=== PATIENT | female | born 1995 | race African-American/Black ===

== ENCOUNTER 2017-03-04 00:36 | Emergency (ER) | payer OTHER ==
[2017-03-04] MEDS ORDERED: LIDOCAINE VISCOUS 2% 15 ML UDC MM STA (01:14)
[2017-03-04] MEDS ORDERED: PHENobarb/HYOSCY/ATROPINE/SCOP 5 ML SYRINGE PO STA (01:14)
[2017-03-04] MEDS ORDERED: MAG HYDROX/AL HYDROX/SIMETH 30 ML UDC PO STA (01:14)
--- NOTE | 2017-03-04 01:15 | ED Physician Documentation ---
PD HPI CHEST PAIN - Stated complaint Stated Complaint: CHEST PAIN - Chief complaint Chief Complaint: Cardiac - History obtained from History obtained from: Patient - History of Present Illness Timing - onset: How many hours ago (6) Timing - onset during: Rest Timing - details: Still present Quality: Dull Location: Substernal Worsened by: Inspiration Associated symptoms: Shortness of air, Palpitations Similar symptoms before: Diagnosis (Reports history of similar symptoms with a panic attack 2 months ago.) - Additional information Additional information: The patient is a 21-year-old female who presents with substernal chest discomfort and palpitations that started about 6 hours prior to arrival after eating. She noticed her heart beating rapidly and felt associated shortness of breath. She states it is similar to an episode of panic attack she had 2 months ago. She reports having a recent upper respiratory infection, but her cough has subsided over the past week. She denies nausea, vomiting, or diaphoresis. She does admit to drinking alcohol last night. She denies the use of other drugs. Review of Systems Constitutional: denies: Fever, Fatigue, Sweats Ears: denies: Tinnitus/ringing Nose: denies: Congestion Throat: denies: Sore throat Cardiac: reports: Chest pain / pressure, Palpitations Respiratory: reports: Dyspnea. denies: Cough GI: denies: Abdominal Pain, Nausea, Vomiting : reports: LMP (3 weeks ago). denies: Dysuria Skin: denies: Rash Musculoskeletal: denies: Back pain, Extremity swelling Neurologic: denies: Focal weakness, Numbness, Headache PD PAST MEDICAL HISTORY - Past Medical History Cardiovascular: None Respiratory: None Neuro: None Endocrine/Autoimmune: None GI: None - Past Surgical History Past Surgical History: No - Allergies Allergies/Adverse Reactions: Allergies Allergy/AdvReac Type Severity Reaction Status Date / Time No Known Drug Allergies Allergy Verified 03/04/17 00:50 - Social History Does the pt smoke?: No Smoking Status: Never smoker Does the pt drink ETOH?: Yes Does the pt have substance abuse?: No - Immunizations Immunizations are current?: Yes PD ED PE NORMAL - Vitals Vital signs reviewed: Yes (borderline hypertension initially) - General General: Alert and oriented X 3, Well developed/nourished - HEENT HEENT: Atraumatic, EOMI, Pharynx benign - Neck Neck: No adenopathy, Thyroid normal, No JVD - Cardiac Cardiac: RRR, No murmur, Other (No chest wall tenderness to palpation.) - Respiratory Respiratory: No respiratory distress, Clear bilaterally - Abdomen Abdomen: Soft, No organomegaly, Other (Mild epigastric tenderness to palpation, without rebound or guarding.) - Back Back: No CVA TTP - Derm Derm: No rash - Extremities Extremities: No edema, No calf tenderness / cord - Neuro Neuro: Alert and oriented X 3, No motor deficit, No sensory deficit Results - Vitals Vitals: Vital Signs - 24 hr 03/04/17 03/04/17 00:47 01:53 Temperature 36.7 C Heart Rate 102 H 90 Respiratory 16 20 Rate Blood Pressure 138/90 H 130/80 O2 Saturation 100 100 Oxygen O2 Source Room air - EKG (time done) 01:33 Rate: Rate (enter#) (80) Rhythm: NSR [place]: Normal Intervals: Normal NC QRS: Normal Ischemia: Normal ST segments Computer interpretation: Agree with computer PD MEDICAL DECISION MAKING - ED course Complexity details: reviewed results, re-evaluated patient, considered differential, d/w patient, d/w family ED course: The patient's presentation is most consistent with gastroesophageal reflux. Her electrocardiogram reveals no acute ischemic abnormalities. Treatment in the emergency department included administration of GI cocktail, which resulted in complete resolution of her symptoms. I discussed with her and her the likely etiology of her symptoms, symptomatic treatment and outpatient follow -up, as well as potentially worrisome signs or symptoms that should prompt reevaluation in the emergency department. Departure - Departure Disposition: 01 Home, Self Care Clinical Impression: Chest pain Qualifiers: Chest pain type: precordial pain Qualified Code(s): R07.2 - Precordial pain Gastroesophageal reflux disease Qualifiers: Esophagitis presence: esophagitis presence not specified Qualified Code(s): K21.9 - Gastro-esophageal reflux disease without esophagitis Condition: Stable Instructions: ED GERD Follow-Up: NIHARIKA Feng [Provider Group] Comments: 1. Minimize coffee, silva, and alcohol. 2. If you develop recurrent symptoms try drinking liquid antiacid, such as Maalox or Mylanta. 3. Follow up with your primary physician within one to 2 weeks. Call to schedule an appointment. 4. Return to the emergency department if you develop increasing chest pain, shortness of breath, persistent vomiting, or otherwise worsening symptoms. Discharge Date/Time: 03/04/17 01:53
[2017-03-04] MEDS ORDERED: PHENobarb/HYOSCY/ATROPINE/SCOP 5 ML SYRINGE PO ONE (01:25)
[2017-03-04] MEDS ORDERED: LIDOCAINE VISCOUS 2% 15 ML UDC MM ONE (01:25)
[2017-03-04] MEDS ORDERED: MAG HYDROX/AL HYDROX/SIMETH 30 ML UDC ONE (01:25)
[2017-03-04 01:54] VITALS: BP 130/80
== END 2017-03-04 01:53 | disposition home or self-care (01) ==
LOC: ED 00:36
DX: R07.2 Precordial pain (principal); K21.9 Gastro-esophageal reflux disease without esophagitis
CPT/HCPCS: 93005; 99283; 99284; A9270

== ENCOUNTER 2017-03-08 18:30 | Emergency (ER) | payer OTHER ==
[2017-03-08] MEDS ORDERED: SODIUM CHLORIDE 0.9% 1,000 ML IV ONE (19:37)
[2017-03-08] MEDS ORDERED: SUMAtriptan 6 MG/0.5 ML VIAL SUBQ STA (19:37)
--- NOTE | 2017-03-08 19:38 | ED Physician Documentation ---
History of Present Illness - Stated complaint Stated Complaint: HEADACHE - Chief complaint Chief Complaint: Neuro - History obtained from History obtained from: Patient, Family - History of Present Illness Timing: How many days ago (3) Pain level max: 7 Pain level now: 6 Improved by: Tylenol PM Worsened by: Light, noise, movement - Additonal information Additional information: Patient is a 21-year-old female who presents to the emergency department complaining of a headache for the past 3 days. This is similar to her normal migraine headache. It is located on the right side, aching, throbbing. Gradual onset. Took Tylenol PM 2 days ago which did help, has not taken anything since. No fevers. No trauma. Also complains of esophageal reflux for which she was seen here a few days ago. Patient recently started on Prilosec. Review of Systems Ten Systems: 10 systems reviewed and negative Constitutional: denies: Fever, Chills Eyes: reports: Photophobia Ears: denies: Ear pain Nose: denies: Rhinorrhea / runny nose, Congestion, Epistaxis, Sinus pressure / pain Throat: denies: Sore throat Cardiac: denies: Chest pain / pressure Respiratory: denies: Dyspnea, Cough GI: reports: Abdominal Pain (epigastric). denies: Nausea, Vomiting, Diarrhea : denies: Now EGA Skin: denies: Rash Musculoskeletal: denies: Neck pain, Back pain Neurologic: reports: Generalized weakness. denies: Seizure, Confused, Altered mental status, Head injury, LOC PD PAST MEDICAL HISTORY - Past Medical History Cardiovascular: None Respiratory: None Neuro: None Endocrine/Autoimmune: None GI: None Psych: Anxiety - Past Surgical History Past Surgical History: No - Present Medications Home Medications: Ambulatory Orders Medication Instructions Recorded Confirmed Famotidine [Pepcid] 20 mg PO BID #30 tablet 03/08/17 - Allergies Allergies/Adverse Reactions: Allergies Allergy/AdvReac Type Severity Reaction Status Date / Time No Known Drug Allergies Allergy Verified 03/04/17 00:50 - Social History Does the pt smoke?: No Smoking Status: Never smoker Does the pt drink ETOH?: Yes Does the pt have substance abuse?: No - Immunizations Immunizations are current?: Yes - POLST Patient has POLST: No PD ED PE NORMAL - Vitals Vital signs reviewed: Yes - General General: Alert and oriented X 3, No acute distress, Well developed/nourished - HEENT HEENT: PERRL, EOMI, Ears normal, Moist mucous membranes, Pharynx benign - Neck Neck: Supple, no meningeal sign - Cardiac Cardiac: RRR, Strong equal pulses - Respiratory Respiratory: No respiratory distress, Clear bilaterally - Abdomen Abdomen: Soft, Non tender, Non distended - Back Back: No spinal TTP - Derm Derm: Warm and dry - Neuro Neuro: Alert and oriented X 3, reimbursement specialist 2-12 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 # 0.5 Eos # 0.1 Baso # 0.0 Absolute Nucleated RBC 0.00 Nucleated RBCs 0.1 Sodium 138 Potassium 3.7 Chloride 105 Carbon Dioxide 24 Anion Gap 9.0 BUN 10 Creatinine 0.8 Estimated GFR (MDRD) 108 Glucose 91 Calcium 9.1 Total Bilirubin 0.5 AST 27 ALT 32 Alkaline Phosphatase 55 Total Protein 8.4 H Albumin 4.1 Globulin 4.3 H Albumin/Globulin Ratio 1.0 Lipase 29 Urine Color YELLOW Urine Clarity CLEAR Urine pH 7.5 Ur Specific [place] <=1.005 Urine Protein NEGATIVE Urine Glucose (UA) NEGATIVE Urine Ketones NEGATIVE Urine Occult Blood LARGE H Urine Nitrite NEGATIVE Urine Bilirubin NEGATIVE Urine Urobilinogen 0.2 (NORMAL) Ur Leukocyte Esterase NEGATIVE Urine RBC 0-5 Urine WBC 0-3 Ur Squamous Epith Cells MOD Squamous H Urine Bacteria None Seen Ur Microscopic Review INDICATED Urine Culture Comments NOT INDICATED Urine HCG, Qual NEGATIVE PD MEDICAL DECISION MAKING - ED course Complexity details: reviewed results, re-evaluated patient, considered differential, d/w patient, d/w family ED course: Patient is a 21-year-old female who presents to the emergency department with her usual migraine headache. Headache resolved with Toradol, Compazine, Benadryl and Imitrex. Also given IV fluids. Tolerating p.o. without difficulty. She is well-appearing, nontoxic. Normal neurological examination including cerebellar testing. Normal gait. Will place her on Pepcid as well as the Prilosec for home for her GERD. Patient counseled regarding signs and symptoms for which I believe and urgent re-evaluation would be necessary. Patient with good understanding of and agreement to plan and is comfortable going home at this time This document was made in part using voice recognition software. While efforts are made to proofread this document, sound alike and grammatical errors may occur. Departure - Departure Disposition: Home, Self Care Clinical Impression: Gastroesophageal reflux disease Qualifiers: Esophagitis presence: esophagitis presence not specified Qualified Code(s): K21.9 - Gastro-esophageal reflux disease without esophagitis Migraine Qualifiers: Migraine type: unspecified Status migrainosus presence: without status migrainosus Intractability: not intractable Qualified Code(s): G43.909 - Migraine, unspecified, not intractable, without status migrainosus Condition: Good Instructions: ED Headache Migraine, ED GERD Follow-Up: your,doctor in 1 week [Other] Prescriptions: Famotidine [Pepcid] 20 mg PO BID #30 tablet Comments: Return if you worsen. Rest tonight. Discharge Date/Time: 03/08/17 22:35
[2017-03-08] MEDS ORDERED: SUMAtriptan 6 MG/0.5 ML VIAL SUBQ ONE (19:47)
[2017-03-08 20:37] LABS: BASOPHILS % (AUTO) 0.5 %; EOSINOPHILS # (AUTO) 0.1 10^3/uL (0.0-0.7); EOSINOPHILS % (AUTO) 0.9 %; HCT - HEMATOCRIT 42.4 % (37.0-47.0); LYMPHOCYTES # (AUTO) 2.5 10^3/uL (1.5-3.5); LYMPHOCYTES % (AUTO) 39.3 %; MEAN CORPUSCULAR HGB CONC 33.1 g/dL (32.0-36.0); MEAN CORPUSCULAR VOLUME 87.4 fL (81.0-99.0); MEAN PLATELET VOLUME 8.6 fL (7.9-10.8); MONOCYTES # (AUTO) 0.5 10^3/uL (0.0-1.0); MONOCYTES % (AUTO) 7.4 %; NEUTROPHILS # (AUTO) 3.2 10^3/uL (1.5-6.6); NEUTROPHILS % (AUTO) 51.9 %; NUCLEATED RED BLOOD CELLS AUTO 0.1 /100WBC; RED BLOOD COUNT 4.85 10^6/uL (4.20-5.40); RED CELL DISTRIBUTION WIDTH 13.4 % (12.0-15.0); UNCORRECTED WHITE BLOOD COUNT 6.2 x10^3/uL; WHITE BLOOD COUNT 6.2 x10^3/uL (4.8-10.8)
[2017-03-08 20:47] LABS: BILIRUBIN,TOTAL 0.5 mg/dL (0.2-1.0); CALCIUM 9.1 mg/dL (8.5-10.3); CREATININE 0.8 mg/dL (0.4-1.0); POTASSIUM 3.7 mmol/L (3.5-5.0); TOTAL PROTEIN 8.4 g/dL (6.7-8.2)
[2017-03-08] MEDS ORDERED: diphenhydrAMINE INJ 50 MG/ML VIAL IVP STA (20:54)
[2017-03-08] MEDS ORDERED: KETOROLAC 60 MG/2 ML VIAL IVP STA (20:54)
[2017-03-08] MEDS ORDERED: PROCHLORPERAZINE 10 MG/2 ML VIAL IVP STA (20:54)
[2017-03-08] MEDS ORDERED: diphenhydrAMINE INJ 50 MG/ML VIAL ONE (20:57)
[2017-03-08] MEDS ORDERED: KETOROLAC 30 MG/ML VIAL ONE (20:57)
[2017-03-08] MEDS ORDERED: PROCHLORPERAZINE 10 MG/2 ML VIAL ONE (20:58)
[2017-03-08] MEDS ORDERED: KETOROLAC 30 MG/ML VIAL IVP STA (21:02)
[2017-03-08 21:05] LABS: BILIRUBIN,URINE NEGATIVE (NEGATIVE); PH,URINE 7.5 PH (5.0-7.5)
[2017-03-08 21:08] LABS: HCG UR QUAL NEGATIVE; UA w/ MICROSCOPIC CHARGE YES
[2017-03-08 21:20] LABS: UR CULTURE IF IND NOT INDICATED; WBC,URINE 0-3 /HPF (0-5)
[2017-03-08 22:06] VITALS: BP 116/74
== END 2017-03-08 22:35 | disposition home or self-care (01) ==
LOC: ED 18:30
DX: G43.909 Migraine, unspecified, not intractable, without status migrainosus (principal); K21.9 Gastro-esophageal reflux disease without esophagitis
CPT/HCPCS: 36415; 80053; 81001; 81003; 81025; 83690; 85025; 87086; 96372; 96374; 96375; 99283; 99284

== ENCOUNTER 2017-03-09 15:08 | Emergency (ER) | payer OTHER ==
[2017-03-09 15:15] VITALS: BP 128/84
[2017-03-09] MEDS ORDERED: SUCRALFATE 1 GM/10 ML UDC PO STA (15:25)
--- NOTE | 2017-03-09 15:27 | ED Physician Documentation ---
History of Present Illness - Stated complaint Stated Complaint: MEDS SIDE EFFECTS - Chief complaint Chief Complaint: General - History obtained from History obtained from: Patient, Family - History of Present Illness Timing: Today Pain level max: 3 Pain level now: 3 Improved by: nothing Worsened by: nothing - Additonal information Additional information: Patient is a 21-year-old female who was seen here last night for headache and gastroesophageal reflux. She took Pepcid this morning and approximately 30 minutes later felt tingling in her hands and feet. She states that this is now improving. She also states that she had mild jaw pain earlier this morning which is also resolved. No shortness of breath, no dyspnea, no rash, no hives. Review of Systems Constitutional: denies: Fever, Chills Nose: denies: Rhinorrhea / runny nose, Congestion Throat: denies: Sore throat Respiratory: denies: Cough, Wheezing GI: denies: Vomiting, Diarrhea Skin: denies: Rash Musculoskeletal: denies: Neck pain, Back pain Neurologic: denies: Headache PD PAST MEDICAL HISTORY - Past Medical History Cardiovascular: None Respiratory: None Neuro: None Endocrine/Autoimmune: None GI: None Psych: Anxiety - Past Surgical History Past Surgical History: No - Present Medications Home Medications: Ambulatory Orders Medication Instructions Recorded Confirmed Famotidine [Pepcid] 20 mg PO BID #30 tablet 03/08/17 03/09/17 Desogestrel-Ethinyl Estradiol 1 tab PO DAILY 03/09/17 03/09/17 [[place] 28 Day Tablet] Omeprazole [PriLOSEC] 20 mg PO DAILY 03/09/17 03/09/17 Sucralfate [Carafate] 1 gm PO ACHS #60 tablet 03/09/17 - Allergies Allergies/Adverse Reactions: Allergies Allergy/AdvReac Type Severity Reaction Status Date / Time No Known Drug Allergies Allergy Verified 03/04/17 00:50 - Social History Does the pt smoke?: No Smoking Status: Never smoker Does the pt drink ETOH?: Yes Does the pt have substance abuse?: No - Immunizations Immunizations are current?: Yes - POLST Patient has POLST: No PD ED PE NORMAL - Vitals Vital signs reviewed: Yes - General General: Alert and oriented X 3, No acute distress - HEENT HEENT: Moist mucous membranes, Pharynx benign - Neck Neck: Supple, no meningeal sign - Cardiac Cardiac: RRR - Respiratory Respiratory: No respiratory distress, Clear bilaterally - Abdomen Abdomen: Soft, Non tender, Non distended - Derm Derm: Warm and dry, No rash - Neuro Neuro: Alert and oriented X 3, 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 We will have her stop this at home. We will trial her on Carafate instead. She was seen here for a migraine headache last night and her headache has resolved and has not recurred. The triage note refers to a headache that she describes as jaw pain which is now resolved. No evidence of anaphylaxis. Patient counseled regarding signs and symptoms for which I believe and urgent re-evaluation would be necessary. Patient with good understanding of and agreement to plan and is comfortable going home at this time This document was made in part using voice recognition software. While efforts are made to proofread this document, sound alike and grammatical errors may occur. Departure - Departure Disposition: 01 Home, Self Care Clinical Impression: Medication side effect Gastroesophageal reflux disease Qualifiers: Esophagitis presence: esophagitis presence not specified Qualified Code(s): K21.9 - Gastro-esophageal reflux disease without esophagitis Condition: Good Instructions: ED GERD Follow-Up: your,doctor in 1 week [Other] Prescriptions: Sucralfate [Carafate] 1 gm PO ACHS #60 tablet Comments: Stop the famotidine. Return if you worsen. Discharge Date/Time: 03/09/17 15:35
[2017-03-09] MEDS ORDERED: SUCRALFATE 1 GM/10 ML UDC ONE (15:28)
== END 2017-03-09 15:35 | disposition home or self-care (01) ==
LOC: ED 15:08
DX: R20.2 Paresthesia of skin (principal); T47.0X5A Adverse effect of histamine H2-receptor blockers, initial encounter; Y92.019 Unspecified place in single-family (private) house as the place of occurrence of the external cause; K21.9 Gastro-esophageal reflux disease without esophagitis
CPT/HCPCS: 99283; A9270

== ENCOUNTER 2017-05-16 10:17 | Emergency (ER) | payer OTHER ==
--- NOTE | 2017-05-16 10:52 | ED Physician Documentation ---
PD HPI CHEST PAIN - Stated complaint Stated Complaint: CHEST PX/LIGHTHEADED - Chief complaint Chief Complaint: Cardiac - History obtained from History obtained from: Patient - History of Present Illness Timing - onset: Today Timing - onset during: Rest Timing - duration: Hours Timing - details: Abrupt onset, Still present Quality: Pressure, Sharp Location: Left chest Radiation: Neck Improved by: Nothing Worsened by: Inspiration Associated symptoms: Shortness of air, Nausea, Feeling faint / dizzy. No: Vomiting Similar symptoms before: Diagnosis (reflux) Recently seen: Clinic - Additional information Additional information: 22-year-old female has had pains in her chest for the past 2 and half months. She has been diagnosed with reflux and is placed on some medication for that that helped with heartburn symptoms but she continues to have some pain in her right chest that occurs after she eats and she is complaining of a lot of burping gas and heartburn. She does have pain in her chest that has not been relieved by any of these measures and she is here today because of pain that is in the left chest now. Review of Systems Constitutional: denies: Fever Eyes: denies: Decreased vision Ears: denies: Ear pain Nose: denies: Congestion Throat: denies: Sore throat Cardiac: reports: Chest pain / pressure, Palpitations Respiratory: reports: Dyspnea. denies: Cough GI: reports: Nausea. denies: Abdominal Pain, Vomiting : denies: Dysuria, Frequency PD PAST MEDICAL HISTORY - Past Medical History Past Medical History: Yes Cardiovascular: None Respiratory: None Neuro: None Endocrine/Autoimmune: None GI: GERD Psych: Anxiety - Past Surgical History Past Surgical History: No - Present Medications Home Medications: Ambulatory Orders Medication Instructions Recorded Confirmed Famotidine [Pepcid] 20 mg PO BID #30 tablet 03/08/17 03/09/17 Desogestrel-Ethinyl Estradiol 1 tab PO DAILY 03/09/17 03/09/17 [[place] 28 Day Tablet] Omeprazole [PriLOSEC] 20 mg PO DAILY 03/09/17 03/09/17 Sucralfate [Carafate] 1 gm PO ACHS #60 tablet 03/09/17 - Allergies Allergies/Adverse Reactions: Allergies Allergy/AdvReac Type Severity Reaction Status Date / Time No Known Drug Allergies Allergy Verified 05/16/17 10:23 - Social History Does the pt smoke?: No Smoking Status: Never smoker Does the pt drink ETOH?: Yes Does the pt have substance abuse?: No - Immunizations Immunizations are current?: Yes - POLST Patient has POLST: No PD ED PE NORMAL - Vitals Vital signs reviewed: Yes (hypertensive ) - General General: No acute distress, Well developed/nourished - HEENT HEENT: Atraumatic, PERRL, EOMI - Neck Neck: Supple, no meningeal sign - Cardiac Cardiac: RRR, No murmur - Respiratory Respiratory: No respiratory distress, Clear bilaterally - Abdomen Abdomen: Soft, Non tender - Back Back: No CVA TTP, No spinal TTP - Derm Derm: Normal color, Warm and dry, No rash - Extremities Extremities: No deformity, No edema - Neuro Neuro: No motor deficit, No sensory deficit - Psych Psych: Normal mood, Normal affect Results - Vitals Vitals: Vital Signs - 24 hr 05/16/17 05/16/17 05/16/17 10:20 11:51 12:48 Temperature 36 C L 36.1 C L 36.7 C Heart Rate 92 65 78 Respiratory 18 15 16 Rate Blood Pressure 119/84 H 120/79 125/76 O2 Saturation 100 100 100 Oxygen O2 Source Room air - EKG (time done) 1046 Rate: Rate (enter#) (85) Rhythm: NSR Ischemia: Normal ST segments Compare to prior EKG: Unchanged from prior EKG (03-04-17) Computer interpretation: Agree with computer - Labs Labs: Laboratory Tests 05/16/17 05/16/17 05/16/17 11:45 12:05 12:05 WBC 4.5 L RBC 4.28 Hgb 12.5 Hct 36.9 L MCV 86.4 MCH 29.3 MCHC 33.9 RDW 13.5 Plt Count 238 MPV 9.9 Neut # 2.4 Lymph # 1.8 [place] # 0.3 Eos # 0.0 Baso # 0.0 Absolute Nucleated RBC 0.00 Nucleated RBC % 0.0 Sodium 138 Potassium 3.6 Chloride 106 Carbon Dioxide 22 Anion Gap 10.0 BUN 8 Creatinine 0.8 Estimated GFR (MDRD) 107 Glucose 89 Calcium 9.5 Total Bilirubin 0.7 AST 32 ALT 47 Alkaline Phosphatase 61 Troponin I Total Protein 7.8 Albumin 3.9 Globulin 3.9 Albumin/Globulin Ratio 1.0 Lipase 32 Urine Color LIGHT YELLOW Urine Clarity CLEAR Urine pH 6.0 Ur Specific [place] <=1.005 Urine Protein NEGATIVE Urine Glucose (UA) NEGATIVE Urine Ketones NEGATIVE Urine Occult Blood NEGATIVE Urine Nitrite NEGATIVE Urine Bilirubin NEGATIVE Urine Urobilinogen 0.2 (NORMAL) Ur Leukocyte Esterase TRACE H Urine RBC 0-5 Urine WBC 0-3 Ur Squamous Epith Cells MOD Squamous H Urine Bacteria Few Ur Microscopic Review INDICATED Urine Culture Comments NOT INDICATED Urine HCG, Qual NEGATIVE 05/16/17 12:05 WBC RBC Hgb Hct MCV MCH MCHC RDW Plt Count MPV Neut # Lymph # [place] # Eos # Baso # Absolute Nucleated RBC Nucleated RBC % Sodium Potassium Chloride Carbon Dioxide Anion Gap BUN Creatinine Estimated GFR (MDRD) Glucose Calcium Total Bilirubin AST ALT Alkaline Phosphatase Troponin I < 0.04 Total Protein Albumin Globulin Albumin/Globulin Ratio Lipase Urine Color Urine Clarity Urine pH Ur Specific [place] Urine Protein Urine Glucose (UA) Urine Ketones Urine Occult Blood Urine Nitrite Urine Bilirubin Urine Urobilinogen Ur Leukocyte Esterase Urine RBC Urine WBC Ur Squamous Epith Cells Urine Bacteria Ur Microscopic Review Urine Culture Comments Urine HCG, Qual - Rads (name of study) Abdominal ultrasound limited Radiology: Prelim report reviewed (Impression: Sludge in the gallbladder otherwise normal common bile duct 4 mm.), EMP read indepedently, See rad report Procedures - Bedside sono Bedside sono by EMP: There is concern for a stone in the neck of the gallbladder that does not appear to be obstructing. There is no pericholecystic fluid or gallbladder wall thickening and the gallbladder is sonographically nontender. - IVC sono (time) 1130 Bedside IVC sono: IVC measures (cm) (1.63), IVC collapsed c insp (cm) (1.02), Euvolemia PD MEDICAL DECISION MAKING - ED course Complexity details: reviewed results, re-evaluated patient, considered differential, d/w patient, d/w family ED course: 22-year-old female with a months worth of symptoms of indigestion reflux heartburn burping and gas comes in today with some pain in her left chest she does give history consistent with reflux with aspiration with laryngeal spasm. She has stopped taking her reflux medication and her symptoms have returned. Here in the emergency department she is examined she does have what appears to be stones or gallbladder with bedside ultrasound and this is confirmed with formal ultrasound done in DI. She does not have evidence of cholecystitis. Remainder of her workup is unremarkable. I have recommended she contact the surgeon and I recommended she go on to a nonfat diet and resume her reflux medication. Departure - Departure Disposition: 01 Home, Self Care Clinical Impression: Gastroesophageal reflux disease Qualifiers: Esophagitis presence: with esophagitis Qualified Code(s): K21.0 - Gastro- esophageal reflux disease with esophagitis Cholelithiasis Qualifiers: Cholelithiasis location: gallbladder Cholecystitis presence: without cholecystitis Biliary obstruction: without biliary obstruction Qualified Code(s) : K80.20 - Calculus of gallbladder without cholecystitis without obstruction Condition: Stable Instructions: ED GERD, ED Gallstone W Biliary Colic Follow-Up: NIHARIKA Feng [Provider Group] DOMINICK ARORA MD [Provider Admit Priv/Credential] - Comments: Today it appears you have gallstones and sludge in your gallbladder likely causing your months worth of symptoms. It also appears your reflux is active and we recommend you restart your proton pump inhibitor. Follow up with the surgeon and go on a non-fat diet today.
[2017-05-16] MEDS ORDERED: KETOROLAC 60 MG/2 ML VIAL IM STA (11:51)
[2017-05-16 12:08] LABS: BILIRUBIN,URINE NEGATIVE (NEGATIVE)
[2017-05-16] MEDS ORDERED: KETOROLAC 60 MG/2 ML VIAL ONE (12:08)
[2017-05-16 12:12] LABS: HCG UR QUAL NEGATIVE; UA w/ MICROSCOPIC CHARGE YES
[2017-05-16 12:13] LABS: BASOPHILS % (AUTO) 0.6 %; EOSINOPHILS % (AUTO) 0.4 %; HCT - HEMATOCRIT 36.9 % (37.0-47.0); HGB - HEMOGLOBIN 12.5 g/dL (12.0-16.0); LYMPHOCYTES # (AUTO) 1.8 10^3/uL (1.5-3.5); LYMPHOCYTES % (AUTO) 39.7 %; MEAN CORPUSCULAR HEMOGLOBIN 29.3 pg (27.0-31.0); MEAN CORPUSCULAR HGB CONC 33.9 g/dL (32.0-36.0); MEAN CORPUSCULAR VOLUME 86.4 fL (81.0-99.0); MEAN PLATELET VOLUME 9.9 fL (7.9-10.8); MONOCYTES # (AUTO) 0.3 10^3/uL (0.0-1.0); MONOCYTES % (AUTO) 6.1 %; NEUTROPHILS # (AUTO) 2.4 10^3/uL (1.5-6.6); NEUTROPHILS % (AUTO) 53.2 %; RED BLOOD COUNT 4.28 10^6/uL (4.20-5.40); RED CELL DISTRIBUTION WIDTH 13.5 % (12.0-15.0); UNCORRECTED WHITE BLOOD COUNT 4.5 x10^3/uL; WHITE BLOOD COUNT 4.5 x10^3/uL (4.8-10.8)
[2017-05-16 12:20] LABS: UR CULTURE IF IND NOT INDICATED; WBC,URINE 0-3 /HPF (0-5)
[2017-05-16 12:27] LABS: BILIRUBIN,TOTAL 0.7 mg/dL (0.2-1.0); CALCIUM 9.5 mg/dL (8.5-10.3); CREATININE 0.8 mg/dL (0.4-1.0); POTASSIUM 3.6 mmol/L (3.5-5.0); TOTAL PROTEIN 7.8 g/dL (6.7-8.2)
[2017-05-16 12:49] VITALS: BP 125/76
--- NOTE | 2017-05-16 13:18 | Ultrasound Report ---
RIGHT UPPER QUADRANT ULTRASOUND: CLINICAL INDICATION: Pain. TECHNIQUE: Real-time scanning was performed with territory account representative static images obtained. FINDINGS: The liver measures 14.2 cm. Hepatic echotexture is normal. No intrahepatic biliary dilat ation or focal parenchymal lesion is present. The common bile duct measures 4 mm. The gallbladder d emonstrates nonshadowing sludge within its lumen. No wall thickening or pericholecystic fluid is see n. The right kidney measures 10.6 cm, and demonstrates no hydronephrosis. No free fluid is present . IMPRESSION: GALLBLADDER SLUDGE. OTHERWISE, NORMAL RIGHT UPPER QUADRANT ULTRASOUND. JOB #: [id number] EXT JOB #:
== END 2017-05-16 13:15 | disposition home or self-care (01) ==
LOC: ED 10:17
DX: K21.0 Gastro-esophageal reflux disease with esophagitis (principal); K80.20 Calculus of gallbladder without cholecystitis without obstruction
CPT/HCPCS: 36415; 76705; 80053; 81001; 81003; 81025; 83690; 84484; 85025; 87086; 93005; 96372; 99283

== ENCOUNTER 2017-06-18 16:28 | Emergency (ER) | payer OTHER ==
[2017-06-18 16:38] VITALS: BP 115/71
--- NOTE | 2017-06-18 17:01 | ED Physician Documentation ---
History of Present Illness - Stated complaint Stated Complaint: CHEST PX - Chief complaint Chief Complaint: General - History obtained from History obtained from: Patient, Family - History of Present Illness Timing: Today Pain level max: 6 Pain level now: 6 Improved by: rest Worsened by: movement - Additonal information Additional information: Patient is a 22-year-old female who presents to the emergency department with anterior chest pain after working out her upper body yesterday and doing "flys" . Pain is worse with movement and palpation. No recent surgery. No immobilization. No history of cardiac disease. Review of Systems Throat: denies: Sore throat Cardiac: denies: Palpitations Respiratory: denies: Dyspnea, Cough, Hemoptysis, Wheezing GI: denies: Abdominal Pain, Nausea, Vomiting, Diarrhea : denies: Now EGA PD PAST MEDICAL HISTORY - Past Medical History Cardiovascular: None Respiratory: None Neuro: None Endocrine/Autoimmune: None GI: GERD Psych: Anxiety - Past Surgical History Past Surgical History: No - Present Medications Home Medications: Ambulatory Orders Medication Instructions Recorded Confirmed Desogestrel-Ethinyl Estradiol 1 tab PO DAILY 03/09/17 06/18/17 [[place] 28 Day Tablet] - Allergies Allergies/Adverse Reactions: Allergies Allergy/AdvReac Type Severity Reaction Status Date / Time No Known Drug Allergies Allergy Verified 05/16/17 10:23 - Social History Does the pt smoke?: No Smoking Status: Never smoker Does the pt drink ETOH?: Yes Does the pt have substance abuse?: No - Immunizations Immunizations are current?: Yes - POLST Patient has POLST: No PD ED PE NORMAL - Vitals Vital signs reviewed: Yes - General General: Alert and oriented X 3, No acute distress - HEENT HEENT: Moist mucous membranes - Neck Neck: Supple, no meningeal sign - Cardiac Cardiac: RRR, Strong equal pulses - Respiratory Respiratory: No respiratory distress, Clear bilaterally - Abdomen Abdomen: Soft, Non tender, Non distended - Extremities Extremities: No edema, No calf tenderness / cord - Neuro Neuro: Alert and oriented X 3 - Psych Psych: Normal mood, Normal affect - Free text exam Free text exam: TTP across the anterior chest wall and costal cartilage. no swelling,. no erythema or skin changes. Results - Vitals Vitals: Vital Signs - 24 hr 06/18/17 16:34 Temperature 36.6 C Heart Rate 92 Respiratory 18 Rate Blood Pressure 115/71 O2 Saturation 100 Oxygen O2 Source Room air - EKG (time done) 1639 Rate: Rate (enter#) (80) Rhythm: NSR [place]: Normal Intervals: Normal CT QRS: Normal Ischemia: Normal ST segments PD MEDICAL DECISION MAKING - ED course Complexity details: reviewed old records, reviewed results, re-evaluated patient , considered differential (No ST elevation [place], no aortic dissection, no PE, no tension pneumothorax, no aortic aneurysm), d/w patient, d/w family ED course: Patient is a 22-year-old female who presents to the emergency department with what appears to be costochondritis. Likely secondary to recent upper body workout. No evidence of acute coronary syndrome or pulmonary embolus. Patient is well-appearing, nontoxic. Afebrile. No immobilization or recent surgery. We will continue supportive care and follow-up with her doctor. Will utilize NSAIDs at home. Patient counseled regarding signs and symptoms for which I believe and urgent re-evaluation would be necessary. Patient with good understanding of and agreement to plan and is comfortable going home at this time This document was made in part using voice recognition software. While efforts are made to proofread this document, sound alike and grammatical errors may occur. Departure - Departure Disposition: 01 Home, Self Care Clinical Impression: Costochondritis Condition: Good Instructions: ED Chest Pain Costochondritis Follow-Up: RICHIE MENEZES [Primary Care Provider] - Within 1 week Comments: Return if you worsen. This should improve over the next few days. Discharge Date/Time: 06/18/17 17:15
== END 2017-06-18 17:15 | disposition home or self-care (01) ==
LOC: ED 16:28
DX: M94.0 Chondrocostal junction syndrome [Tietze] (principal)
CPT/HCPCS: 93005; 99283; 99284

== ENCOUNTER 2017-09-02 10:47 | Emergency (ER) | payer OTHER ==
[2017-09-02 11:42] LABS: HCG,QUALITATIVE BLOOD NEGATIVE
--- NOTE | 2017-09-02 11:44 | ED Physician Documentation ---
History of Present Illness - Stated complaint Stated Complaint: CHEST PX/DIFF BREATHING - Chief complaint Chief Complaint: Cardiac - Additonal information Additional information: hx from pt 22 y/o f healthy fhx DM not CAD or clots denies preg LMP now and on OCP has had CP for about 6 months wup so far included labs EKG CXR GB sono and then just had EGD with biopsies now has similar sx but worse chest pressure and belching and SOA Review of Systems Constitutional: denies: Fever, Chills Cardiac: reports: Chest pain / pressure Respiratory: reports: Dyspnea GI: denies: Abdominal Swelling, Nausea, Vomiting, Diarrhea : reports: LMP (now), Control. denies: Now EGA Musculoskeletal: denies: Extremity pain, Extremity swelling Endocrine: denies: Easy bruising / bleeding Immunocompromised: denies: Immunocompromised PD PAST MEDICAL HISTORY - Past Medical History Cardiovascular: None Respiratory: None Neuro: None Endocrine/Autoimmune: None GI: GERD Psych: Anxiety - Past Surgical History Past Surgical History: No - Present Medications Home Medications: Ambulatory Orders Medication Instructions Recorded Confirmed Desogestrel-Ethinyl Estradiol 1 tab PO DAILY 03/09/17 09/02/17 [[place] 28 Day Tablet] Sucralfate 1 gm PO ACHS #120 tablet 09/02/17 raNITIdine [Zantac] 150 mg PO BID #60 tablet 09/02/17 - Allergies Allergies/Adverse Reactions: Allergies Allergy/AdvReac Type Severity Reaction Status Date / Time No Known Drug Allergies Allergy Verified 09/02/17 10:53 - Social History Does the pt smoke?: No Smoking Status: Never smoker Does the pt drink ETOH?: Yes Does the pt have substance abuse?: No - Immunizations Immunizations are current?: Yes - POLST Patient has POLST: No PD ED PE NORMAL - Vitals Vital signs reviewed: Yes - General General: Alert and oriented X 3 - HEENT HEENT: PERRL - Neck Neck: Supple, no meningeal sign - Cardiac Cardiac: RRR - Respiratory Respiratory: No respiratory distress, Clear bilaterally - Abdomen Abdomen: Soft, Non tender - Derm Derm: Normal color - Extremities Extremities: No edema, No calf tenderness / cord - Neuro Neuro: Alert and oriented X 3 Results - Vitals Vitals: Vital Signs - 24 hr 09/02/17 09/02/17 10:50 14:07 Temperature 36.8 C Heart Rate 90 67 Respiratory 16 16 Rate Blood Pressure 123/80 137/58 H O2 Saturation 100 100 Oxygen O2 Source Room air - EKG (time done) 1055 Rate: Rate (enter#) (98) Rhythm: NSR [place]: Normal QRS: Normal Ischemia: Non specific changes (isolated inv T V3) - Labs Labs: Laboratory Tests 09/02/17 09/02/17 09/02/17 11:08 11:08 11:08 WBC 3.3 L RBC 4.39 Hgb 13.0 Hct 35.4 L MCV 80.6 L MCH 29.6 MCHC 36.7 H RDW 13.7 Plt Count 229 MPV 8.9 Neut # 1.5 Lymph # 1.5 [place] # 0.2 Eos # 0.0 Baso # 0.0 Absolute Nucleated RBC 0.00 Nucleated RBC % 0.0 D-Dimer 211.3 Sodium Potassium Chloride Carbon Dioxide Anion Gap BUN Creatinine Estimated GFR (MDRD) Glucose Calcium Total Bilirubin AST ALT Alkaline Phosphatase Troponin I Total Protein Albumin Globulin Albumin/Globulin Ratio Lipase Serum HCG, Qual NEGATIVE 09/02/17 09/02/17 11:08 11:08 WBC RBC Hgb Hct MCV MCH MCHC RDW Plt Count MPV Neut # Lymph # [place] # Eos # Baso # Absolute Nucleated RBC Nucleated RBC % D-Dimer Sodium 136 Potassium 3.6 Chloride 106 Carbon Dioxide 19 L Anion Gap 11.0 BUN 8 Creatinine 0.8 Estimated GFR (MDRD) 107 Glucose 102 H Calcium 9.2 Total Bilirubin 0.2 AST 21 ALT 20 Alkaline Phosphatase 50 Troponin I < 0.04 Total Protein 7.5 Albumin 3.5 Globulin 4.0 Albumin/Globulin Ratio 0.9 L Lipase 22 Serum HCG, Qual - Rads (name of study) CXR Radiology: See rad report (no perf) PD MEDICAL DECISION MAKING - ED course ED course: CXR shows no perf pt waited hr in ER for sono and feels better and would like to go home Departure - Departure Disposition: ED Transfer to [facility] Clinical Impression: Atypical chest pain Condition: Good Instructions: ED Chest Pain Atypical Unkn Cause, ED GERD Follow-Up: RICHIE MENEZES [Primary Care Provider] - Prescriptions: raNITIdine [Zantac] 150 mg PO BID #60 tablet Sucralfate 1 gm PO ACHS #120 tablet Comments: The tests we were able to do in the ER were fine The xray does not show a perforation after your biopsies. The blood work indicates you heart is fine and that you do not have blood clots in your lungs. I think it would be a good idea to get another ultrasound of your gallbladder - but since you are doing better now it is OK to do this as an outpatient with your PMD or GI doctor It sounds like the chest pain may be due to acid reflux (or your gallbaldder) so have written for some medications to try and ease your symptoms Forms: Activity restrictions
[2017-09-02 11:50] LABS: BASOPHILS % (AUTO) 0.6 %; EOSINOPHILS % (AUTO) 1.2 %; LYMPHOCYTES # (AUTO) 1.5 10^3/uL (1.5-3.5); LYMPHOCYTES % (AUTO) 46.3 %; MEAN CORPUSCULAR HEMOGLOBIN 29.6 pg (27.0-31.0); MEAN CORPUSCULAR HGB CONC 36.7 g/dL (32.0-36.0); MEAN CORPUSCULAR VOLUME 80.6 fL (81.0-99.0); MEAN PLATELET VOLUME 8.9 fL (7.9-10.8); MONOCYTES # (AUTO) 0.2 10^3/uL (0.0-1.0); NEUTROPHILS # (AUTO) 1.5 10^3/uL (1.5-6.6); NEUTROPHILS % (AUTO) 44.9 %; PLT - PLATELET COUNT 229 10^3/uL (130-450); RED BLOOD COUNT 4.39 10^6/uL (4.20-5.40); RED CELL DISTRIBUTION WIDTH 13.7 % (12.0-15.0); WHITE BLOOD COUNT 3.3 x10^3/uL (4.8-10.8)
[2017-09-02 11:58] LABS: ALBUMIN 3.5 g/dL (3.2-5.5); ALBUMIN/GLOBULIN RATIO 0.9 (1.0-2.2); BILIRUBIN,TOTAL 0.2 mg/dL (0.2-1.0); CALCIUM 9.2 mg/dL (8.5-10.3); CREATININE 0.8 mg/dL (0.4-1.0); TOTAL PROTEIN 7.5 g/dL (6.7-8.2)
--- NOTE | 2017-09-02 12:34 | XRAY Report ---
EXAM: CHEST RADIOGRAPHY EXAM DATE: 09/02/2017 12:25 PM. CLINICAL HISTORY: Chest pain s/p EGD with esoph and gastric bx. COMPARISON: None. TECHNIQUE: 2 views. FINDINGS: Lungs/Pleura: No focal opacities evident. No pleural effusion. No pneumothorax. Normal volumes. Mediastinum: Heart and mediastinal contours are unremarkable. Other: Increased soft tissue density projected over the lower cervical spine on the frontal projectio n not definitely appreciated on the lateral projection, question superimposed material. IMPRESSION: Clear lungs. No acute process in the chest. [facility] Referring Provider Line: [phone] SITE ID: [id number]
[2017-09-02] MEDS ORDERED: FAMOTIDINE 20 MG/50 ML 50 ML IV ONE (13:41)
[2017-09-02] MEDS ORDERED: SUCRALFATE 1 GM/10 ML UDC PO STA (13:41)
[2017-09-02] MEDS ORDERED: FAMOTIDINE 20 MG TABLET PO STA (14:08)
[2017-09-02 16:25] VITALS: BP 129/73
== END 2017-09-02 16:32 | disposition home or self-care (01) ==
LOC: ED 10:47
DX: R07.89 Other chest pain (principal); K21.9 Gastro-esophageal reflux disease without esophagitis
CPT/HCPCS: 36415; 71046; 80053; 83690; 84484; 84703; 85025; 85379; 93005; 99283; A9270

== ENCOUNTER 2017-09-15 03:18 | Emergency (ER) | payer OTHER ==
[2017-09-15 03:23] VITALS: BP 120/90
--- NOTE | 2017-09-15 03:30 | ED Physician Documentation ---
PD HPI FEMALE - Stated complaint Stated Complaint: FEMALE - Chief complaint Chief Complaint: UTI - History obtained from History obtained from: Patient - History of Present Illness Timing - onset: How many days ago (2) Timing - duration: Days (2) Timing - details: Gradual onset, Still present (has gotten very painful/burning over a couple of days. Has some clumpy white discharge and buring feeling.) Associated symptoms: Vaginal pain, Vaginal discharge (clumpy white), Other (not improved with Monistat earlier today.). No: Fever, Dysuria, Urinary frequency Contributing factors: Other (she is on 2 abx for H.Pylori treatment, has been on them for a week.). No: , Exposed to STD Similar symptoms before: Diagnosis (has had similar with yeast infections, but not to this severity.) Recently seen: Not recently seen Review of Systems Constitutional: denies: Fever, Chills Throat: denies: Sore throat Respiratory: denies: Cough GI: denies: Vomiting, Diarrhea : reports: Discharge. denies: Dysuria, Frequency, Vaginal bleeding, Missed period Skin: reports: Rash (swelling and redness of inner labia) PD PAST MEDICAL HISTORY - Past Medical History Cardiovascular: None Respiratory: None Neuro: None Endocrine/Autoimmune: None GI: GERD Psych: Anxiety - Past Surgical History Past Surgical History: No - Present Medications Home Medications: Ambulatory Orders Medication Instructions Recorded Confirmed Desogestrel-Ethinyl Estradiol 1 tab PO DAILY 03/09/17 09/02/17 [[place] 28 Day Tablet] Simethicone [Gas Relief] 80 mg PO ACHS #120 tab.chew 09/02/17 Sucralfate 1 gm PO ACHS #120 tablet 09/02/17 raNITIdine [Zantac] 150 mg PO BID #60 tablet 09/02/17 Betamethasone Valerate 1 applic TP BID PRN #15 cream..g. 09/15/17 Fluconazole [Diflucan] 150 mg PO Q3D #2 tablet 09/15/17 Tramadol HCl 50 mg PO Q6H PRN #15 tablet 09/15/17 - Allergies Allergies/Adverse Reactions: Allergies Allergy/AdvReac Type Severity Reaction Status Date / Time No Known Drug Allergies Allergy Verified 09/15/17 03:23 - Social History Does the pt smoke?: No Smoking Status: Never smoker Does the pt drink ETOH?: Yes Does the pt have substance abuse?: No - Immunizations Immunizations are current?: Yes - POLST Patient has POLST: No PD ED PE NORMAL - Vitals Vital signs reviewed: Yes - General General: Alert and oriented X 3, No acute distress, Well developed/nourished, Other (standing with wide based stance to keep labia not irritated. 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 No sores. Vault with redness and swelling of wiggins. There is thicker white discharge and some milkier discharge. No malodor. No cervical discharge. ) - Rectal Rectal: Deferred - Back Back: No CVA TTP - Derm Derm: Normal color, Warm and dry - Neuro Neuro: Alert and oriented X 3, Normal speech Results - Vitals Vitals: Vital Signs - 24 hr 09/15/17 03:20 Temperature 36.1 C L Heart Rate 81 Respiratory 18 Rate Blood Pressure 120/90 H O2 Saturation 97 Oxygen O2 Source Room air - Labs Labs: Microbiology 09/15/17 03:41 Wet Prep - Final Vaginal Laboratory Tests 09/15/17 09/15/17 03:25 03:25 Urine Color LT. YELLOW Urine Clarity CLEAR Urine pH 6.5 Ur Specific [place] 1.010 1.010 Urine Protein NEGATIVE Urine Glucose (UA) NEGATIVE Urine Ketones NEGATIVE Urine Occult Blood NEGATIVE Urine Nitrite NEGATIVE Urine Bilirubin NEGATIVE Urine Urobilinogen 0.2 (NORMAL) Ur Leukocyte Esterase TRACE H Urine RBC 0-5 Urine WBC 0-3 Ur Squamous Epith Cells RARE Squamous Urine Bacteria None Seen Ur Microscopic Review INDICATED Urine Culture Comments INDICATED Urine HCG, Qual NEGATIVE PD MEDICAL DECISION MAKING - ED course Complexity details: considered differential (looks like yeast infection with redness/swelling. She started Monistat without response yet. She is on abx for H.Pylori so will likely have yeast recurrence so can repeat the Diflucan in 3 and 7 days. ), d/w patient Departure - Departure Disposition: Home, Self Care Clinical Impression: Yeast vaginitis, Discomfort of vagina Condition: Stable Record reviewed to determine appropriate education?: Yes Instructions: ED Vaginal Infec Fungal Елена Follow-Up: NIHARIKA Feng [Provider Group] Prescriptions: Betamethasone Valerate 1 applic TP BID PRN #15 cream..g. PRN Reason: Swelling Fluconazole [Diflucan] 150 mg PO Q3D #2 tablet Tramadol HCl 50 mg PO Q6H PRN #15 tablet PRN Reason: Pain Comments: Continue your current medications. For the vaginal discomfort, can use lidocaine ointment to help with the labial pain. Betamethasone steroid can be used to reduce swelling. Diflucan oral antifungal in 3 days and again at 7 days from now, to treat the yeast infection. The cultures from the vaginal exam will result in 3 days to see if there is bacterial infection as well. Right now it looks like yeast. Tylenol and/or Tramadol for pain as needed. Forms: Activity restrictions Discharge Date/Time: 09/15/17 04:16
[2017-09-15] MEDS ORDERED: DEXAMETHASONE 10 MG/ML VIAL PO STA (03:44)
[2017-09-15] MEDS ORDERED: LIDOCAINE OINTMENT 5% 35.44 GM TUBE TOP STA (03:44)
[2017-09-15] MEDS ORDERED: HYDROcod/ACETAM 5/325 MG TABLET PO STA (03:44)
[2017-09-15] MEDS ORDERED: FLUCONAZOLE 100 MG TABLET PO STA (03:44)
[2017-09-15 03:52] LABS: BILIRUBIN,URINE NEGATIVE (NEGATIVE); CLARITY,URINE CLEAR (CLEAR); GLUCOSE, URINE (UA) NEGATIVE (NEGATIVE); HCG UR QUAL NEGATIVE; KETONES,URINE (UA) NEGATIVE (NEGATIVE); LEUKOCYTE ESTERASE, URINE TRACE (NEGATIVE); NITRITE,URINE NEGATIVE (NEGATIVE); OCCULT BLOOD,URINE NEGATIVE (NEGATIVE); PH,URINE 6.5 PH (5.0-7.5); PROTEIN,URINE NEGATIVE (NEGATIVE); UROBILINOGEN,URINE 0.2 (NORMAL) E.U./dL (NORMAL)
[2017-09-15 04:08] LABS: BACTERIA,URINE None Seen /HPF (None Seen); RBC,URINE 0-5 /HPF (0-5); SQUAMOUS EPITHELIAL CELL,UR RARE Squamous (<= Few)
== END 2017-09-15 04:16 | disposition home or self-care (01) ==
LOC: ED 03:18
DX: B37.3 Candidiasis of vulva and vagina (principal); K21.9 Gastro-esophageal reflux disease without esophagitis
CPT/HCPCS: 81001; 81025; 87086; 87210; 87491; 87591; 99283; A9270; 81003